=== PATIENT | male | born 1940 | race Caucasian/White ===

== ENCOUNTER 2022-09-05 08:49 | Emergency (ER) | payer OTHER ==
[~2022-09-05] VITALS: Ht 172.7 cm; Wt 81.7 kg
[~2022-09-05 08:49] MED LIST: ALBU90OI; ALPR1; ALPR1 PO; ASPI325 PO; ATOR20 PO; ATOR40TA; ATORVASTATIN CALCIUM; CLOP75 PO; CYCL10 PO; FLOVENT; FLUT44OIA INH; HYDACE5 PO; IRON; L-ARGININE500 MG PO; LEVSOD125 PO; LOSHYD PO; LOVA20 PO; NITR.4SL SL; OMEP20ER PO; OMEP40CA12 PO; POTASSIUM CHLORIDE; SERT100 PO; TELM40 PO; VITAMIN C; Vitamin B Comple1 EA; ZOLP10
[2022-09-05 10:25] LABS: BASOPHILS ABSOLUTE AUTO 0.03 K/mm3 (0.00-0.23); BASOPHILS PERCENT AUTO 0 % (0-2); EOSINOPHILS ABSOLUTE AUTO 0.04 K/mm3 (0.00-0.68); EOSINOPHILS PERCENT AUTO 1 % (0-6); Hematocrit 38.4 % (37.0-53.0); Hemoglobin 12.7 g/dL (13.5-17.5); IMMATURE GRAN ABSOLUTE AUTO 0.09 K/mm3 (0.00-0.10); IMMATURE GRAN PERCENT AUTO 1 % (0-1); LYMPHOCYTES PERCENT AUTO 14 % (21-46); MONOCYTES ABSOLUTE AUTO 0.88 K/mm3 (0.16-1.47); MONOCYTES PERCENT AUTO 13 % (4-13); Mean Corpuscular HGB 31.1 pg (26.0-34.0); Mean Corpuscular HGB Conc 33.1 g/dL (31.5-36.5); Mean Corpuscular Volume 94 fL (80-100); Mean Platelet Volume 10.9 fL (9.1-12.4); NEUTROPHILS ABSOLUTE AUTO 4.99 K/mm3 (1.96-9.15); NEUTROPHILS PERCENT AUTO 71 % (41-73); Platelet Count 216 K/mm3 (150-400); RDW Coefficient Variation 14.5 % (11.7-14.2); RDW Standard Deviation 49.9 fL (35.1-46.3); Red Blood Cell Count 4.08 M/mm3 (4.30-5.90); White Blood Cell Count 7.03 K/mm3 (4.00-11.30)
[2022-09-05] MEDS ORDERED: REMERON1510 PO (10:36)
[2022-09-05] MEDS ORDERED: NEURONTIN300 MG PO (10:36)
[2022-09-05] MEDS ORDERED: ELIQUIS5 M3 PO (10:37)
[2022-09-05] MEDS ORDERED: NEBIVOLOL HCL5 MG PO (10:38)
[2022-09-05 10:49] LABS: Albumin, Blood 4.3 g/dL (3.4-5.0); Albumin/Globulin Ratio 1.4 (0.8-1.8); Bilirubin, Total 0.6 mg/dL (0.1-1.0); Bun/Creatinine Ratio 24.3 (12.0-20.0); Calcium, Blood 8.9 mg/dL (8.5-10.1); Creatinine, Blood 0.82 mg/dL (0.60-1.20); Globulin, Blood 3.1 g/dL (2.2-4.0); Magnesium, Blood 2.2 mg/dL (1.6-2.4); Potassium, Blood 4.2 mmol/L (3.5-5.5); Total Protein, Blood 7.4 g/dL (6.4-8.2)
[2022-09-05 14:30] VITALS: BP 150/100
== END 2022-09-05 14:55 | disposition home or self-care (01) ==
LOC: ER 08:49
PROVIDERS: Student in an Organized Health Care Education/Training Program
DX: R00.2 Palpitations (principal); I10 Essential (primary) hypertension; I48.91 Unspecified atrial fibrillation; E78.5 Hyperlipidemia, unspecified; Z91.048 Other nonmedicinal substance allergy status; Z88.5 Allergy status to narcotic agent; Z79.82 Long term (current) use of aspirin; Z79.02 Long term (current) use of antithrombotics/antiplatelets; Z79.899 Other long term (current) drug therapy
CPT/HCPCS: 71045; 80053; 83735; 84484; 85025; 93005; 93010; J2405

== ENCOUNTER → 2022-11-21 | Outpatient (CLI) | payer OTHER ==
[~2022-11-21] MED LIST changes: +ELIQUIS5 M3 PO; +NEBIVOLOL HCL5 MG PO; +NEURONTIN300 MG PO; +REMERON1510 PO
== END ==
LOC: LAB SHORT 12:00 → LAB 12:00
DX: E03.9 Hypothyroidism, unspecified (principal)
CPT/HCPCS: 84443

== ENCOUNTER 2023-03-21 20:56 | Emergency (ER) | payer OTHER ==
[~2023-03-21] VITALS: Ht 172.7 cm; Wt 82.5 kg
[2023-03-21 21:17] LABS: BASOPHILS ABSOLUTE AUTO 0.03 K/mm3 (0.00-0.23); BASOPHILS PERCENT AUTO 1 % (0-2); EOSINOPHILS ABSOLUTE AUTO 0.04 K/mm3 (0.00-0.68); EOSINOPHILS PERCENT AUTO 1 % (0-6); Hemoglobin 11.8 g/dL (13.5-17.5); IMMATURE GRAN ABSOLUTE AUTO 0.06 K/mm3 (0.00-0.10); IMMATURE GRAN PERCENT AUTO 2 % (0-1); LYMPHOCYTES ABSOLUTE AUTO 1.15 K/mm3 (0.84-5.20); LYMPHOCYTES PERCENT AUTO 30 % (21-46); MONOCYTES ABSOLUTE AUTO 0.88 K/mm3 (0.16-1.47); MONOCYTES PERCENT AUTO 23 % (4-13); Mean Corpuscular HGB 31.1 pg (26.0-34.0); Mean Corpuscular HGB Conc 32.8 g/dL (31.5-36.5); Mean Corpuscular Volume 95 fL (80-100); Mean Platelet Volume 11.1 fL (9.1-12.4); NEUTROPHILS ABSOLUTE AUTO 1.71 K/mm3 (1.96-9.15); NEUTROPHILS PERCENT AUTO 44 % (41-73); Platelet Count 141 K/mm3 (150-400); RDW Coefficient Variation 14.6 % (11.7-14.2); RDW Standard Deviation 50.5 fL (35.1-46.3); Red Blood Cell Count 3.79 M/mm3 (4.30-5.90); White Blood Cell Count 3.87 K/mm3 (4.00-11.30)
[2023-03-21 21:41] LABS: Albumin, Blood 3.7 g/dL (3.4-5.0); Albumin/Globulin Ratio 1.2 (0.8-1.8); Bilirubin, Total 0.4 mg/dL (0.1-1.0); Bun/Creatinine Ratio 20.7 (12.0-20.0); Calcium, Blood 8.4 mg/dL (8.5-10.1); Creatinine, Blood 0.82 mg/dL (0.60-1.20); Globulin, Blood 3.1 g/dL (2.2-4.0); Potassium, Blood 3.7 mmol/L (3.5-5.5); Total Protein, Blood 6.8 g/dL (6.4-8.2)
[2023-03-21 22:15] VITALS: BP 137/84
== END 2023-03-21 22:35 | disposition home or self-care (01) ==
LOC: ER 20:56
PROVIDERS: Emergency Medicine
DX: F41.9 Anxiety disorder, unspecified (principal); I10 Essential (primary) hypertension; E78.5 Hyperlipidemia, unspecified; I48.91 Unspecified atrial fibrillation
CPT/HCPCS: 80053; 84484; 85025; 93005; 93010; 99284-25

== ENCOUNTER 2023-04-22 03:16 | Emergency (ER) | payer OTHER ==
[~2023-04-22] VITALS: Ht 177.8 cm; Wt 83.9 kg
[2023-04-22 03:47] LABS: BASOPHILS ABSOLUTE AUTO 0.03 K/mm3 (0.00-0.23); BASOPHILS PERCENT AUTO 0 % (0-2); EOSINOPHILS ABSOLUTE AUTO 0.18 K/mm3 (0.00-0.68); EOSINOPHILS PERCENT AUTO 3 % (0-6); Hematocrit 27.8 % (37.0-53.0); Hemoglobin 8.9 g/dL (13.5-17.5); IMMATURE GRAN ABSOLUTE AUTO 0.18 K/mm3 (0.00-0.10); IMMATURE GRAN PERCENT AUTO 3 % (0-1); LYMPHOCYTES ABSOLUTE AUTO 1.14 K/mm3 (0.84-5.20); LYMPHOCYTES PERCENT AUTO 17 % (21-46); MONOCYTES ABSOLUTE AUTO 1.23 K/mm3 (0.16-1.47); MONOCYTES PERCENT AUTO 18 % (4-13); Mean Corpuscular HGB 30.8 pg (26.0-34.0); Mean Corpuscular Volume 96 fL (80-100); Mean Platelet Volume 11.2 fL (9.1-12.4); NEUTROPHILS ABSOLUTE AUTO 3.94 K/mm3 (1.96-9.15); NEUTROPHILS PERCENT AUTO 59 % (41-73); Platelet Count 127 K/mm3 (150-400); RDW Coefficient Variation 14.6 % (11.7-14.2); RDW Standard Deviation 50.4 fL (35.1-46.3); Red Blood Cell Count 2.89 M/mm3 (4.30-5.90)
[2023-04-22 04:08] LABS: Albumin, Blood 2.9 g/dL (3.4-5.0); Albumin/Globulin Ratio 1.1 (0.8-1.8); Bilirubin, Total 0.3 mg/dL (0.1-1.0); Bun/Creatinine Ratio 27.3 (12.0-20.0); Calcium, Blood 7.8 mg/dL (8.5-10.1); Creatinine, Blood 0.88 mg/dL (0.60-1.20); Globulin, Blood 2.7 g/dL (2.2-4.0); Potassium, Blood 3.6 mmol/L (3.5-5.5); Total Protein, Blood 5.6 g/dL (6.4-8.2)
[2023-04-22 07:02] LABS: Hemoglobin 9.2 g/dL (13.5-17.5)
[2023-04-22 07:27] VITALS: BP 117/65
== END 2023-04-22 08:14 | disposition home or self-care (01) ==
LOC: ER 03:16
PROVIDERS: Emergency Medicine
DX: R07.9 Chest pain, unspecified (principal); D64.9 Anemia, unspecified; R14.0 Abdominal distension (gaseous); M25.511 Pain in right shoulder; M25.512 Pain in left shoulder; M79.621 Pain in right upper arm; M79.622 Pain in left upper arm; G89.29 Other chronic pain; I10 Essential (primary) hypertension; E78.5 Hyperlipidemia, unspecified; I48.91 Unspecified atrial fibrillation; Z86.73 Personal history of transient ischemic attack (TIA), and cerebral infarction without residual deficits; Z95.9 Presence of cardiac and vascular implant and graft, unspecified; Z79.01 Long term (current) use of anticoagulants; Z79.82 Long term (current) use of aspirin; Z79.51 Long term (current) use of inhaled steroids; Z79.899 Other long term (current) drug therapy; Z88.5 Allergy status to narcotic agent; Z91.048 Other nonmedicinal substance allergy status
CPT/HCPCS: 71046; 74174; 80053; 83880; 84484; 85014; 85018; 85025; 85379; 93005; 93010; 99285-25; A9270; Q9967

== ENCOUNTER 2023-05-05 07:50 | Emergency (ER) | payer OTHER ==
[~2023-05-05] VITALS: Ht 172.7 cm; Wt 83.5 kg
[2023-05-05 07:56] VITALS: BP 130/77
== END 2023-05-05 09:54 | disposition home or self-care (01) ==
LOC: ER 07:50
DX: M54.2 Cervicalgia (principal); G89.29 Other chronic pain; M25.511 Pain in right shoulder; M25.512 Pain in left shoulder; M54.9 Dorsalgia, unspecified; Z98.890 Other specified postprocedural states; I10 Essential (primary) hypertension; E78.5 Hyperlipidemia, unspecified; I48.91 Unspecified atrial fibrillation; Z88.5 Allergy status to narcotic agent; Z91.048 Other nonmedicinal substance allergy status; Z79.899 Other long term (current) drug therapy; Z79.01 Long term (current) use of anticoagulants; Z79.51 Long term (current) use of inhaled steroids; Z79.82 Long term (current) use of aspirin
CPT/HCPCS: 96372; 99283-25; J1885

== ENCOUNTER → 2023-05-11 | Outpatient (CLI) | payer OTHER ==
[2023-05-11 12:27] LABS: BASOPHILS ABSOLUTE AUTO 0.02 K/mm3 (0.00-0.23); BASOPHILS PERCENT AUTO 0 % (0-2); EOSINOPHILS PERCENT AUTO 9 % (0-6); Hematocrit 31.5 % (37.0-53.0); IMMATURE GRAN ABSOLUTE AUTO 0.12 K/mm3 (0.00-0.10); IMMATURE GRAN PERCENT AUTO 2 % (0-1); LYMPHOCYTES ABSOLUTE AUTO 1.09 K/mm3 (0.84-5.20); LYMPHOCYTES PERCENT AUTO 20 % (21-46); MONOCYTES PERCENT AUTO 31 % (4-13); Mean Corpuscular HGB 30.1 pg (26.0-34.0); Mean Corpuscular HGB Conc 31.7 g/dL (31.5-36.5); Mean Corpuscular Volume 95 fL (80-100); Mean Platelet Volume 10.5 fL (9.1-12.4); NEUTROPHILS ABSOLUTE AUTO 2.12 K/mm3 (1.96-9.15); NEUTROPHILS PERCENT AUTO 38 % (41-73); Platelet Count 191 K/mm3 (150-400); RDW Coefficient Variation 15.7 % (11.7-14.2); RDW Standard Deviation 54.1 fL (35.1-46.3); Red Blood Cell Count 3.32 M/mm3 (4.30-5.90); White Blood Cell Count 5.55 K/mm3 (4.00-11.30)
[2023-05-11 13:12] LABS: Albumin, Blood 3.3 g/dL (3.4-5.0); Bilirubin, Direct 0.2 mg/dL (0.0-0.3); Bilirubin, Indirect 0.4 mg/dL (0.1-0.7); Bilirubin, Total 0.6 mg/dL (0.1-1.0); Bun/Creatinine Ratio 19.6 (12.0-20.0); Calcium, Blood 8.7 mg/dL (8.5-10.1); Creatinine, Blood 0.72 mg/dL (0.60-1.20); Globulin, Blood 3.4 g/dL (2.2-4.0); Phosphorus, Blood 2.7 mg/dL (2.5-4.9); Potassium, Blood 3.7 mmol/L (3.5-5.5); Total Protein, Blood 6.7 g/dL (6.4-8.2)
== END | disposition home or self-care (01) ==
LOC: LAB SHORT 10:34 → LAB 10:34
PROVIDERS: Internal Medicine
DX: I10 Essential (primary) hypertension (principal); I48.0 Paroxysmal atrial fibrillation; R29.898 Other symptoms and signs involving the musculoskeletal system; R60.1 Generalized edema
CPT/HCPCS: 80053; 82248; 83880; 84100; 85025; 85651

== ENCOUNTER → 2023-05-19 | Outpatient (CLI) | payer OTHER ==
[2023-05-20 08:10] LABS: ALBUMIN 4.1 g/dL (3.7-4.7); BILIRUBIN, DIRECT 0.17 mg/dL (0.00-0.40); BILIRUBIN, TOTAL 0.6 mg/dL (0.0-1.2); CALCIUM, SERUM 9.2 mg/dL (8.6-10.2); CREATININE, SERUM 0.89 mg/dL (0.76-1.27); POTASSIUM, SERUM 3.7 mmol/L (3.5-5.2)
== END ==
LOC: LAB SHORT 14:07 → LAB 14:07
PROVIDERS: Internal Medicine
DX: I10 Essential (primary) hypertension (principal); R60.1 Generalized edema
CPT/HCPCS: 80048; 80076

== ENCOUNTER → 2023-10-05 | Outpatient (CLI) | payer OTHER | END | disposition home or self-care (01) | LOC: LAB SHORT 18:28 → LAB 18:28 | DX: N39.0 Urinary tract infection, site not specified (principal) | CPT/HCPCS: 87086 ==

== ENCOUNTER → 2023-11-05 | Outpatient (CLI) | payer OTHER ==
[2023-11-05 14:19] LABS: Source, Urine Clean Catch
[2023-11-05 15:30] LABS: Bilirubin, Urine Neg (Neg); Blood, Urine Neg (Neg); Color, Urine Yellow (P-Yellow); Glucose Qualitative, Urine Neg (Neg); Ketones, Urine Neg (Neg); Leukocyte Esterase, Urine Neg (Neg); Nitrite, Urine Neg (Neg); Protein, Urine 1+ (Neg); Urobilinogen, Urine NORM (Normal)
[2023-11-05 15:44] LABS: Amorphous Light (0-Heavy); Appearance, Urine Hazy (Clear); Bacteria Rare /hpf; Red Blood Cells, Urine 0-2 /hpf (0-2); Squamous Epithelial Cells Rare /hpf (Few); White Blood Cells, Urine 0-2 /hpf (0-5)
== END ==
LOC: LAB SHORT 14:02 → LAB 14:02
PROVIDERS: Internal Medicine
DX: R30.0 Dysuria (principal)
CPT/HCPCS: 81001

== ENCOUNTER 2024-01-02 18:58 | Emergency (ER) | payer OTHER ==
[~2024-01-02] VITALS: Ht 172.7 cm; Wt 88.0 kg
[2024-01-02 19:27] LABS: BASOPHILS ABSOLUTE AUTO 0.02 K/mm3 (0.00-0.23); BASOPHILS PERCENT AUTO 0 % (0-2); EOSINOPHILS ABSOLUTE AUTO 0.09 K/mm3 (0.00-0.68); EOSINOPHILS PERCENT AUTO 1 % (0-6); Hematocrit 28.5 % (37.0-53.0); Hemoglobin 8.7 g/dL (13.5-17.5); IMMATURE GRAN ABSOLUTE AUTO 0.07 K/mm3 (0.00-0.10); IMMATURE GRAN PERCENT AUTO 1 % (0-1); LYMPHOCYTES PERCENT AUTO 23 % (21-46); MONOCYTES ABSOLUTE AUTO 1.61 K/mm3 (0.16-1.47); MONOCYTES PERCENT AUTO 25 % (4-13); Mean Corpuscular HGB 27.2 pg (26.0-34.0); Mean Corpuscular HGB Conc 30.5 g/dL (31.5-36.5); Mean Corpuscular Volume 89 fL (80-100); Mean Platelet Volume 10.6 fL (9.1-12.4); NEUTROPHILS ABSOLUTE AUTO 3.27 K/mm3 (1.96-9.15); NEUTROPHILS PERCENT AUTO 50 % (41-73); Platelet Count 171 K/mm3 (150-400); RDW Coefficient Variation 16.6 % (11.7-14.2); White Blood Cell Count 6.56 K/mm3 (4.00-11.30)
[2024-01-02 19:42] LABS: Albumin, Blood 3.5 g/dL (3.4-5.0); Albumin/Globulin Ratio 1.1 (0.8-1.8); Bilirubin, Total 0.3 mg/dL (0.1-1.0); Bun/Creatinine Ratio 19.5 (12.0-20.0); Calcium, Blood 8.3 mg/dL (8.5-10.1); Creatinine, Blood 0.92 mg/dL (0.60-1.20); Globulin, Blood 3.2 g/dL (2.2-4.0); Potassium, Blood 2.9 mmol/L (3.5-5.5); Total Protein, Blood 6.7 g/dL (6.4-8.2)
[2024-01-02] MEDS ORDERED: Potassium Chloride 20 MEQ/15 ML UDC PO ONE (19:50)
[2024-01-02] MEDS ORDERED: Potassium Chl 20MEQ/Water100ML 100 ML IV ONE (19:50)
[2024-01-02] MEDS ORDERED: NS 1,000 ML IV SCH (20:15)
[2024-01-02 21:00] VITALS: BP 163/97
[2024-01-02] MEDS ORDERED: K-Dur20 MEQ PO (21:49)
== END 2024-01-02 22:02 | disposition home or self-care (01) ==
LOC: ER 18:58
PROVIDERS: Pediatrics
DX: R07.89 Other chest pain (principal); I10 Essential (primary) hypertension; I48.91 Unspecified atrial fibrillation; I25.2 Old myocardial infarction; E78.5 Hyperlipidemia, unspecified; Z86.73 Personal history of transient ischemic attack (TIA), and cerebral infarction without residual deficits; Z79.82 Long term (current) use of aspirin; Z79.51 Long term (current) use of inhaled steroids; Z79.899 Other long term (current) drug therapy; Z88.5 Allergy status to narcotic agent; Z91.048 Other nonmedicinal substance allergy status
CPT/HCPCS: 71045; 80053; 84484; 85025; 93005; 93010; 96365; 96366; 99285-25; A9270; J3480; J7030

== ENCOUNTER 2024-01-08 11:39 | Inpatient (IN) | payer OTHER ==
[~2024-01-08] VITALS: Ht 172.7 cm; Wt 88.6 kg
[~2024-01-08 11:39] MED LIST changes: -ATOR40TA; +ATOR80 PO; +K-Dur20 MEQ PO
[2024-01-08 12:18] LABS: BASOPHILS ABSOLUTE AUTO 0.03 K/mm3 (0.00-0.23); BASOPHILS PERCENT AUTO 0 % (0-2); EOSINOPHILS ABSOLUTE AUTO 0.06 K/mm3 (0.00-0.68); EOSINOPHILS PERCENT AUTO 1 % (0-6); Hematocrit 31.8 % (37.0-53.0); Hemoglobin 9.5 g/dL (13.5-17.5); IMMATURE GRAN ABSOLUTE AUTO 0.18 K/mm3 (0.00-0.10); IMMATURE GRAN PERCENT AUTO 2 % (0-1); LYMPHOCYTES ABSOLUTE AUTO 1.72 K/mm3 (0.84-5.20); LYMPHOCYTES PERCENT AUTO 19 % (21-46); MONOCYTES ABSOLUTE AUTO 2.29 K/mm3 (0.16-1.47); MONOCYTES PERCENT AUTO 26 % (4-13); Mean Corpuscular HGB 27.3 pg (26.0-34.0); Mean Corpuscular HGB Conc 29.9 g/dL (31.5-36.5); Mean Corpuscular Volume 91 fL (80-100); Mean Platelet Volume 11.4 fL (9.1-12.4); NEUTROPHILS ABSOLUTE AUTO 4.59 K/mm3 (1.96-9.15); NEUTROPHILS PERCENT AUTO 52 % (41-73); Platelet Count 172 K/mm3 (150-400); RDW Coefficient Variation 17.2 % (11.7-14.2); Red Blood Cell Count 3.48 M/mm3 (4.30-5.90); White Blood Cell Count 8.87 K/mm3 (4.00-11.30)
[2024-01-08 12:38] LABS: Albumin, Blood 3.9 g/dL (3.4-5.0); Albumin/Globulin Ratio 1.1 (0.8-1.8); Bilirubin, Total 0.4 mg/dL (0.1-1.0); Calcium, Blood 9.1 mg/dL (8.5-10.1); Creatinine, Blood 0.96 mg/dL (0.60-1.20); Globulin, Blood 3.4 g/dL (2.2-4.0); Potassium, Blood 3.3 mmol/L (3.5-5.5); Total Protein, Blood 7.3 g/dL (6.4-8.2)
[2024-01-08] MEDS ORDERED: FLU VACC TS2024-25(6MOS UP)/PF 45 MCG/0.5 ML SYRINGE IM SCH (16:50)
[2024-01-08] MEDS ORDERED: Acetaminophen 325 MG TABLET PO PRN (16:50)
[2024-01-08] MEDS ORDERED: Pantoprazole Sodium 40 MG in NS 50 ML IV SCH (16:55)
[2024-01-08] MEDS ORDERED: Ondansetron 4 MG TAB PO PRN (16:55)
[2024-01-08] MEDS ORDERED: Pantoprazole Sodium 40 MG Injection IV ONE (17:00)
[2024-01-08] MEDS ORDERED: ALPRAZolam 1 MG Tab PO SCH (17:00)
[2024-01-08] MEDS ORDERED: Potassium Chl 20MEQ/Water100ML 100 ML IV SCH (17:05)
[2024-01-08] MEDS ORDERED: Albuterol HFA200 ACT/6.7 GM INH INH PRN (17:10)
[2024-01-08] MEDS ORDERED: CefTRIAXone Sodium 1,000 MG in NS 50 ML IV ONE (17:35)
[2024-01-08] MEDS ORDERED: NS 1,000 ML IV ONE (18:36)
[2024-01-08] MEDS ORDERED: NS 1,000 ML BAG IR SCH (18:40)
[2024-01-08] MEDS ORDERED: NS 1,000 ML IV SCH (19:20)
[2024-01-08 19:55] LABS: Hematocrit 27.9 % (37.0-53.0); Hemoglobin 8.3 g/dL (13.5-17.5)
--- NOTE | 2024-01-08 20:37 | NUR ---
NEW ADMIT. PATIENT ADMITTED TO ROOM 331 FROM THE ER. PATIENT ARRIVED TO ROOM VIA GURNEY AND 1 PERSON TRANSPORT. PATIENT ABLE TO SELF TRANSFER FROM GURNEY TO BED. PATIENT ARRIVED TO ROOM WITH 1 PERSONAL BELONGINGS BAG. PATIENT ARRIVED WITH FLUIDS AND POTASSIUM-2ND BAG OF POTASSIUM STARTED AT THIS TIME. THIS RN TO ASSUME CARE.
[2024-01-08] MEDS ORDERED: Zolpidem Tartrate 10 MG Tab PO SCH (21:00)
[2024-01-08] MEDS ORDERED: Sertraline HCl 100 MG Tab PO SCH (21:00)
[2024-01-08] MEDS ORDERED: Phenylephrine HCl 100 MCG/ML-NS 10MLSYR (1MG/10ML) IV ONE (21:04)
[2024-01-08] MEDS ORDERED: IRON FOLATE-F1 EACH PO (21:14)
[2024-01-08] MEDS ORDERED: MULTI-VITAMIN1 EAC2 PO (21:15)
[2024-01-09 02:57] VITALS: BP 157/98
--- NOTE | 2024-01-09 05:03 | NUR ---
SHIFT SUMMARY. PATIENT IS A&OX4. INDEPENDENT TO THE BATHROOM WITH CANE. PATIENT IS PLEASANT ABND COOPERATIVE WITH CARE. PATIENT HAS TELE ON-TELE HAS CALLED FREQUENTLY D/T PATIENT READING ASYSTOLE-PATIENT AWAKE WATCHING TV WITH NO COMPLAINTS OF CHEST PAIN/PRESSURE/TIGHTNESS OR HEART ISSUES. PATIENT HAS A PACEMAKER AND HE WENT TO [place] LAST MONTH TO HAVE HIS PACEMAKER INTERIGATED-DURING THIS VISIT PATIENT SAID REPORTS "THEY TOOK ME BACK TO THE ROOM AND THE PA WENT TO DISCUSS MY RESULTS WITH DOCTOR AND WOULD RETURN TO TALK TO ME. THE PA DID NOT COME BACK INTO MY ROOM AND IT HAD BEEN AN HOUR SO I LEFT MY APPOINTMENT AND THE DOCTOR NEVER CALLED ME". THIS RN CHANGED OUT PATIENTS LEADS, PADS, AND CONNECTOR FOR TELE WITH NO IMPROVEMENT IN READINGS. PATIENT ADMITTED WITH GI BLEED. HEMAGLOBIN WAS 8.3 AT ADMITTANCE TO MEDICAL FLOOR-PATIENT ASYMPTOMATIC. BED IS LOCKED IN THE LOWEST POSITION WITH CALL LIGHT IN REACH. CARE IS ONGOING.
[2024-01-09 05:27] LABS: BASOPHILS ABSOLUTE AUTO 0.03 K/mm3 (0.00-0.23); BASOPHILS PERCENT AUTO 1 % (0-2); EOSINOPHILS ABSOLUTE AUTO 0.07 K/mm3 (0.00-0.68); EOSINOPHILS PERCENT AUTO 1 % (0-6); Hematocrit 27.4 % (37.0-53.0); Hemoglobin 8.3 g/dL (13.5-17.5); IMMATURE GRAN ABSOLUTE AUTO 0.13 K/mm3 (0.00-0.10); IMMATURE GRAN PERCENT AUTO 2 % (0-1); LYMPHOCYTES ABSOLUTE AUTO 0.87 K/mm3 (0.84-5.20); LYMPHOCYTES PERCENT AUTO 15 % (21-46); MONOCYTES ABSOLUTE AUTO 1.75 K/mm3 (0.16-1.47); MONOCYTES PERCENT AUTO 29 % (4-13); Mean Corpuscular HGB 27.5 pg (26.0-34.0); Mean Corpuscular HGB Conc 30.3 g/dL (31.5-36.5); Mean Corpuscular Volume 91 fL (80-100); NEUTROPHILS ABSOLUTE AUTO 3.14 K/mm3 (1.96-9.15); NEUTROPHILS PERCENT AUTO 52 % (41-73); Platelet Count 134 K/mm3 (150-400); RDW Coefficient Variation 17.1 % (11.7-14.2); Red Blood Cell Count 3.02 M/mm3 (4.30-5.90); White Blood Cell Count 5.99 K/mm3 (4.00-11.30)
[2024-01-09 05:46] LABS: Bun/Creatinine Ratio 21.2 (12.0-20.0); Calcium, Blood 8.3 mg/dL (8.5-10.1); Creatinine, Blood 0.8 mg/dL (0.60-1.20); Potassium, Blood 3.5 mmol/L (3.5-5.5)
[2024-01-09 07:19] VITALS: BP 175/93
[2024-01-09] MEDS ORDERED: Carvedilol 3.125 MG Tab PO SCH (08:00)
[2024-01-09] MEDS ORDERED: Vitamin B Complex 1 EA Softgel PO SCH (09:00)
[2024-01-09] MEDS ORDERED: Atorvastatin 40 MG Tab PO SCH (09:00)
[2024-01-09] MEDS ORDERED: Mirtazapine 15 MG Tab PO SCH (09:00)
[2024-01-09] MEDS ORDERED: Gabapentin 300 MG Cap PO SCH (09:00)
[2024-01-09] MEDS ORDERED: Potassium Chloride 20 MEQ TabCR PO SCH (09:00)
[2024-01-09 10:19] VITALS: BP 154/106
[2024-01-09] MEDS ORDERED: HydrALAZINE HCl 10 MG Tab PO PRN (10:35)
[2024-01-09 11:03] VITALS: BP 161/93
[2024-01-09] MEDS ORDERED: Peg/Electrolytes 4,000 ML BTL PO ONE (11:25)
[2024-01-09 12:19] LABS: Hematocrit 27.7 % (37.0-53.0); Hemoglobin 8.4 g/dL (13.5-17.5)
[2024-01-09 15:49] VITALS: BP 157/106
--- NOTE | 2024-01-09 18:47 | NUR ---
SHIFT SUMMARY PATIENT STARTED GOLYTLY ABOUT NOON THIS SHIFT, ABOUT HALF COMPLETE END OF SHIFT. PRODUCING LIQUID BLACK STOOLS, MIXED CONTINENCE. CHAIR ALARM PLACED, PATIENT REPORITNG FEELING LIKE HE IS DRUNK AND POSSIBLY EXPERIENCING HALLUCINATIONS. DR BRIONES MADE AWARE, SUGGESTED TO CONTINUE TO MONITOR. VSS, MINUS HTN. PRN ADDED BUT NOT GIVEN PER PARAMTERS. RELEASE OF INFO FAXED TO [employer] FOR [employer] INFORATION. ON TELE, NO CONCERNING CALLS THIS SHIFT. ABLE TO MAKE NEEDS KNOWN. CALL LIGHT IN REACH, ENCOURAGED TO USE BSC FOR SAFETY.
[2024-01-09 19:18] VITALS: BP 123/81
[2024-01-10] VITALS (15 sets, daily range): BP systolic 83–157; BP diastolic 62–103
[2024-01-10] MEDS ORDERED: Levothyroxine Sodium 0.075 MG Tab PO SCH (06:00)
[2024-01-10 06:11] LABS: BASOPHILS ABSOLUTE AUTO 0.02 K/mm3 (0.00-0.23); BASOPHILS PERCENT AUTO 0 % (0-2); EOSINOPHILS ABSOLUTE AUTO 0.07 K/mm3 (0.00-0.68); EOSINOPHILS PERCENT AUTO 1 % (0-6); Hematocrit 24.1 % (37.0-53.0); Hemoglobin 7.5 g/dL (13.5-17.5); IMMATURE GRAN ABSOLUTE AUTO 0.15 K/mm3 (0.00-0.10); IMMATURE GRAN PERCENT AUTO 3 % (0-1); LYMPHOCYTES ABSOLUTE AUTO 0.87 K/mm3 (0.84-5.20); LYMPHOCYTES PERCENT AUTO 16 % (21-46); MONOCYTES ABSOLUTE AUTO 1.23 K/mm3 (0.16-1.47); MONOCYTES PERCENT AUTO 23 % (4-13); Mean Corpuscular HGB 27.8 pg (26.0-34.0); Mean Corpuscular HGB Conc 31.1 g/dL (31.5-36.5); Mean Corpuscular Volume 89 fL (80-100); Mean Platelet Volume 10.7 fL (9.1-12.4); NEUTROPHILS ABSOLUTE AUTO 3.05 K/mm3 (1.96-9.15); NEUTROPHILS PERCENT AUTO 57 % (41-73); Platelet Count 118 K/mm3 (150-400); RDW Coefficient Variation 17.1 % (11.7-14.2); White Blood Cell Count 5.39 K/mm3 (4.00-11.30)
--- NOTE | 2024-01-10 06:29 | NUR ---
night hift PATIENT IS A&OX3 FORGETFUL AT TIMES, BP SLIGHTLY ELEVATED, ON TELE RUNNIGN A PACED AT 70, ON ROOM AIR PATIENT DENIED ANY PIN BUT COMPLAINED OF FEELING NAUSA. PATIENT DRINK ALL OF BOWEL PREP LASTNIGHT, BOWEL MOVEMENT IS LIQUIT BUT BLACK IN APPERANCE FROM GI BLEED PATIENT HAS A COLONOSCOPY PLAN TODAY. PATIENT HAD AN UNWAITNESS FALL DURING SHIFT WHEN HE TRIED GETTING OUT OF BED TO USE THE BATHROOM. PATIENT SAID HE CALLED BUT THE ALL LIGHTS WERE NOT WORKING AT THAT TIME SO STAFF DIDN'T KNOW TO COME IN TO HELP HIM. PATIENT HAD TWO BRUISES TO UPPER BACK AND A SMALL SKIN TEAR TO RIGHT ELBOW. VITALS WERE TAKEN AND APPEARD NORMAL. MD WAS NOTIFIED AND INSTRUCTED STAFF TO MONITOR PATIENT FOR NAY STATUS CHANGES.
[2024-01-10 06:36] LABS: Albumin, Blood 3.2 g/dL (3.4-5.0); Albumin/Globulin Ratio 1.2 (0.8-1.8); Bilirubin, Total 0.7 mg/dL (0.1-1.0); Bun/Creatinine Ratio 16.7 (12.0-20.0); Calcium, Blood 7.4 mg/dL (8.5-10.1); Creatinine, Blood 0.96 mg/dL (0.60-1.20); Globulin, Blood 2.6 g/dL (2.2-4.0); Potassium, Blood 3.4 mmol/L (3.5-5.5); Total Protein, Blood 5.8 g/dL (6.4-8.2)
[2024-01-10] MEDS ORDERED: Lactated Ringer's 1,000 ML IV SCH (11:35)
[2024-01-10] MEDS ORDERED: propofoL 60 ML IV ONE (11:37)
[2024-01-10] MEDS ORDERED: Lidocaine HCl 4% 5 ML SDA ONE (11:37)
[2024-01-10] MEDS ORDERED: Ondansetron HCl 2 MG / ML 2ML Vial ONE (11:59)
[2024-01-10] MEDS ORDERED: propofoL 20 ML IV ONE (11:59)
[2024-01-10] MEDS ORDERED: Glycopyrrolate 0.2 MG/ML 5ML VIAL ONE (12:00)
--- NOTE | 2024-01-10 12:10 | NUR ---
History, Chart, Medications and Allergies reviewed before start of procedure.Lungs DIMINISHED TO RIGTH BASE. NO NOTED SOB. SATS>90% ON RA. NPO STATUS CONFIRMED. BOWEL PREP CONFIRMED.
--- NOTE | 2024-01-10 12:35 | NUR ---
01/10/24 1235 Grazyna Barragan 1218 History, Chart, Medications and Allergies reviewed before start of procedure.MONITOR INTACT WITH CONTINUOUS PULSE OXIMETRY, CONTINUOUS END TITAL CO2, AND INTERMITTENT BLOOD PRESSURE.3-LEAD EKG REVIEWED WITH PHYSICIAN PRIOR TO START OF PROCEDURE.O2 VIA POM INTACT THROUGHOUT SEDATION/PROCEDURE.LIDO 4% FOR NUMBING.Bite Block Placed.DR. MCNAIR PROVIDING ANESTHESIA-SEE ANESTHESIA RECORD.NEW IV STARTED SHORTLY AFTER IN ROOM TIME PREVIOUS IV INFILTRATED.
[2024-01-10] MEDS ORDERED: Sod Ferric Gluc Complx/Sucrose 125 MG in NS 100 ML IV SCH (15:30)
[2024-01-10] MEDS ORDERED: Potassium Chloride 20 MEQ TabCR PO ONE (16:00)
[2024-01-10] MEDS ORDERED: NS 500 ML IV SCH (16:30)
--- NOTE | 2024-01-10 19:12 | NUR ---
SHIFT SUMMARY PATIENT ABLE TO AMBULATE TO BATHROOM WITH 1 ASSIST AND WALKER. EGD AND COLONSCOPY PERFORMED THIS SHIFT. 1 UNIT PRBC INFUSING AT END OF SHIFT, IRON INFUSION GIVEN. A/OX4, NO HALLUCINATIONS OR C/O FEELING DRUNK THIS SHIFT. TOLERATING REGULAR DIET POSTOP. NO BM AFTER PROCEDURE. NO C/O PAIN, VSS. ABLE TO MAKE NEED KNOWN. CALL LIGHT IN REACH, BED ALARM ON. CARES ONGOING.
[2024-01-11 02:43] VITALS: BP 145/84
--- NOTE | 2024-01-11 04:04 | NUR ---
SHIFT SUMMARY NO ACUTE EVENTS/DISTRESS DURING THIS SHIFT. BLOOD TRANSFUSION FINISHED AT THE BEGINNING OF THIS SHIFT W/O ANY COMPLICATIONS. PRN TYLENOL EFFECTIVE FOR ELEVATED TEMPERATURE AT HS. PT HAS A GOOD APPETITE AND PO INTAKE. PT STATED "I FEEL GREAT" TO THIS CUSTOMER ACCOUNT TECHNICIAN. PT AMBULATING AT 0400 AROUND THE HALLWAY WITH 1-PERSON ASSIST AND FWW. TELE: PACED@69. PT DENIES PAIN AND DISCOMFORT DURING THIS SHIFT. BED AT THE LOWEST POSITION, CALL LIGHT WITHIN REACH. BED ALARM FOR SAFETY. PT IS ABLE TO MAKE HIS NEEDS KNOWN, A&O X4.
[2024-01-11 05:50] LABS: BASOPHILS ABSOLUTE AUTO 0.03 K/mm3 (0.00-0.23); BASOPHILS PERCENT AUTO 0 % (0-2); EOSINOPHILS ABSOLUTE AUTO 0.06 K/mm3 (0.00-0.68); EOSINOPHILS PERCENT AUTO 1 % (0-6); Hemoglobin 8.7 g/dL (13.5-17.5); IMMATURE GRAN ABSOLUTE AUTO 0.11 K/mm3 (0.00-0.10); IMMATURE GRAN PERCENT AUTO 2 % (0-1); LYMPHOCYTES ABSOLUTE AUTO 0.84 K/mm3 (0.84-5.20); LYMPHOCYTES PERCENT AUTO 11 % (21-46); MONOCYTES ABSOLUTE AUTO 1.79 K/mm3 (0.16-1.47); MONOCYTES PERCENT AUTO 24 % (4-13); Mean Corpuscular HGB Conc 31.1 g/dL (31.5-36.5); Mean Corpuscular Volume 90 fL (80-100); Mean Platelet Volume 11.2 fL (9.1-12.4); NEUTROPHILS ABSOLUTE AUTO 4.55 K/mm3 (1.96-9.15); NEUTROPHILS PERCENT AUTO 62 % (41-73); NRBC ABSOLUTE 0.02 K/mm3 (0.00-0.02); NRBC Auto 0.3 /100 WBC (0.0-0.2); Platelet Count 107 K/mm3 (150-400); RDW Coefficient Variation 17.7 % (11.7-14.2); RDW Standard Deviation 54.8 fL (35.1-46.3); Red Blood Cell Count 3.11 M/mm3 (4.30-5.90); White Blood Cell Count 7.38 K/mm3 (4.00-11.30)
[2024-01-11 06:12] LABS: Bun/Creatinine Ratio 16.9 (12.0-20.0); Creatinine, Blood 0.95 mg/dL (0.60-1.20); Potassium, Blood 3.6 mmol/L (3.5-5.5)
[2024-01-11 07:31] VITALS: BP 146/82
[2024-01-11 11:09] VITALS: BP 156/81
--- NOTE | 2024-01-11 11:12 | NUR ---
PER DR BRIONES, PROTONIX GTTs NOT NECESSARY. REMOVING FROM ERM.
[2024-01-11] MEDS ORDERED: Potassium Chlo20 ME1 PO (12:05)
[2024-01-11] MEDS ORDERED: EUTHYROX125 MCG PO (12:07)
--- NOTE | 2024-01-11 12:19 | NUR ---
PATIENT MED REC NOT DONE UPON ADMIT. THE FOLLOWING MEDICATIONS ARE ON PATIENT'S CURRENT MAR AT [facility] AND WILL NEED CLARIFIED WITH PROVIDER BEFORE DISCHARGE: AMLODIPINE 5MG PO QD LEVOTHYROXINE 125MCG QD POLYETHYLENE GLYCOLAX - 1 PACKET PO QD SENNA 8.6MG 2 TABS PO QD SERTRALINE 50MG 3 TABS PO QD FUROSEMIDE 20MG BID THURSDAY, THURSDAY - ADMIN 6 HOURS APART. OMEPRAZOLE 20MG PO BID. HYDROCODONE- APAP 5/325MG - 1 PO BID PRN PAIN LOPERAMIDE HCL SUSPENSION 1MG/7.5MG - 15mL PO PRN LOOSE STOOL. MILK OF MAGNESIA [id number]/15mL - 30mL PO PRN CONSTIPATION. CALL TO DR WHITE WHO WILL SUBMIT MED REC EDIT.
[2024-01-11] MEDS ORDERED: AMLO5 PO (12:32)
[2024-01-11] MEDS ORDERED: FURO20 PO (12:32)
[2024-01-11] MEDS ORDERED: MIRALAX17 GM PO (12:32)
[2024-01-11] MEDS ORDERED: OMEP20ER PO (12:33)
[2024-01-11] MEDS ORDERED: HYDROCODONE-AC1 EA15 PO (12:33)
[2024-01-11] MEDS ORDERED: DULCOLAX400 MG/5 M PO (12:34)
[2024-01-11] MEDS ORDERED: LOPERAMIDE1 MG/7.10 PO (12:34)
--- NOTE | 2024-01-11 20:07 | NUR ---
DISCHARGE/SHIFT SUMMARY: A&Ox4. PLEASANT AND COOPERATIVE WITH CARE. CALLS APPROPRIATELY AND IS ABLE TO ADVOCATE NEEDS EFFECTIVELY. CONTINUENT. SBA c FWW TO BATHROOM. MEDS WHOLE WITH FLUIDS, GXW-MG-B-TIME. TELE PACED IN 60s. NO C/O PAIN OR DISCOMFORT TODAY. DISCHARGED BACK TO [facility]. IV REMOVED BY THIS RN AND STUDENT NURSE, THALIA. INSTRUCTED TO FOLLOW-UP WITH PCP. PATIENT ESCORTED FROM FLOOR BY SON WITH ALL BELONGINGS AND DISCHARGE PACKET.
== END 2024-01-11 13:40 | DRG 378 ==
LOC: ER 11:39 → ERHOLD 11:40 → MEDS 11:40
PROVIDERS: Family Medicine Adult Medicine; Physician Assistant; Student in an Organized Health Care Education/Training Program; Surgery; ADMIT Internal Medicine
PROC: 30233N1 Transfusion of Nonautologous Red Blood Cells into Peripheral Vein, Percutaneous Approach (ICD-10-PCS; 2024-01-08)
PROC: 0DJ08ZZ Inspection of Upper Intestinal Tract, Via Natural or Artificial Opening Endoscopic (ICD-10-PCS; principal; 2024-01-10 12:30)
PROC: 0DJD8ZZ Inspection of Lower Intestinal Tract, Via Natural or Artificial Opening Endoscopic (ICD-10-PCS; 2024-01-10 12:30)
DX: K57.31 Diverticulosis of large intestine without perforation or abscess with bleeding (principal); D62 Acute posthemorrhagic anemia; F41.9 Anxiety disorder, unspecified; F32.A Depression, unspecified; Z66 Do not resuscitate; E03.9 Hypothyroidism, unspecified; E78.5 Hyperlipidemia, unspecified; I10 Essential (primary) hypertension; E87.6 Hypokalemia; G47.00 Insomnia, unspecified; G62.9 Polyneuropathy, unspecified; I48.0 Paroxysmal atrial fibrillation; N40.0 Benign prostatic hyperplasia without lower urinary tract symptoms; Z79.01 Long term (current) use of anticoagulants; I25.2 Old myocardial infarction; Z86.73 Personal history of transient ischemic attack (TIA), and cerebral infarction without residual deficits; Z88.5 Allergy status to narcotic agent; Z79.899 Other long term (current) drug therapy; Z79.82 Long term (current) use of aspirin; Z90.49 Acquired absence of other specified parts of digestive tract; Z98.890 Other specified postprocedural states; Z95.5 Presence of coronary angioplasty implant and graft; Z95.0 Presence of cardiac pacemaker; Z96.612 Presence of left artificial shoulder joint; Z96.611 Presence of right artificial shoulder joint
CPT/HCPCS: 36415; 36430; 74019; 74177; 80048; 80053; 82272; 83690; 84439; 84481; 85014; 85018; 85025; 86850; 86900; 86901; 86923; 94760; 96365; 96366; 96375; 96376; 99285-25; A9270; G0378; J2001; J2371; J2405; J2470; J2704; J2916; J3480; J7030; J7120; P9016; Q9967

== ENCOUNTER → 2024-03-31 | Outpatient (CLI) | payer OTHER ==
[~2024-03-31] MED LIST changes: +AMLO5 PO; +DULCOLAX400 MG/5 M PO; +EUTHYROX125 MCG PO; +FURO20 PO; +HYDROCODONE-AC1 EA15 PO; +IRON FOLATE-F1 EACH PO; +LOPERAMIDE1 MG/7.10 PO; +MIRALAX17 GM PO; +MULTI-VITAMIN1 EAC2 PO; +Potassium Chlo20 ME1 PO
[2024-03-31 18:46] LABS: BASOPHILS ABSOLUTE AUTO 0.03 K/mm3 (0.00-0.23); BASOPHILS PERCENT AUTO 0 % (0-2); EOSINOPHILS ABSOLUTE AUTO 0.07 K/mm3 (0.00-0.68); EOSINOPHILS PERCENT AUTO 1 % (0-6); Hematocrit 34.7 % (37.0-53.0); Hemoglobin 11.3 g/dL (13.5-17.5); IMMATURE GRAN ABSOLUTE AUTO 0.18 K/mm3 (0.00-0.10); IMMATURE GRAN PERCENT AUTO 2 % (0-1); LYMPHOCYTES ABSOLUTE AUTO 1.12 K/mm3 (0.84-5.20); LYMPHOCYTES PERCENT AUTO 12 % (21-46); MONOCYTES ABSOLUTE AUTO 1.18 K/mm3 (0.16-1.47); MONOCYTES PERCENT AUTO 13 % (4-13); Mean Corpuscular HGB 30.5 pg (26.0-34.0); Mean Corpuscular HGB Conc 32.6 g/dL (31.5-36.5); Mean Corpuscular Volume 94 fL (80-100); NEUTROPHILS PERCENT AUTO 72 % (41-73); Platelet Count 147 K/mm3 (150-400); RDW Coefficient Variation 17.7 % (11.7-14.2); RDW Standard Deviation 61.3 fL (35.1-46.3); Red Blood Cell Count 3.71 M/mm3 (4.30-5.90); White Blood Cell Count 9.18 K/mm3 (4.00-11.30)
[2024-03-31 19:30] LABS: Albumin, Blood 3.6 g/dL (3.4-5.0); Albumin/Globulin Ratio 1.1 (0.8-1.8); Bilirubin, Total 0.4 mg/dL (0.1-1.0); Bun/Creatinine Ratio 24.8 (12.0-20.0); Calcium, Blood 9.1 mg/dL (8.5-10.1); Creatinine, Blood 0.85 mg/dL (0.60-1.20); Globulin, Blood 3.3 g/dL (2.2-4.0); Percent Saturation 13.2 % (20.0-50.0); Total Protein, Blood 6.9 g/dL (6.4-8.2)
== END ==
LOC: LAB 16:58 → LAB SHORT 16:58
PROVIDERS: Internal Medicine
DX: E03.9 Hypothyroidism, unspecified (principal); E61.1 Iron deficiency; I10 Essential (primary) hypertension
CPT/HCPCS: 80053; 82728; 83540; 83550; 85025

== ENCOUNTER → 2024-04-23 | Outpatient (CLI) | payer OTHER | END | disposition home or self-care (01) | LOC: LAB 15:05 → LAB SHORT 15:05 | DX: R11.10 Vomiting, unspecified (principal); R35.0 Frequency of micturition | CPT/HCPCS: 87086 ==

== ENCOUNTER 2024-06-04 10:36 | Emergency (ER) | payer OTHER ==
[~2024-06-04] VITALS: Ht 170.2 cm; Wt 81.7 kg
[2024-06-04 11:32] LABS: BASOPHILS ABSOLUTE AUTO 0.05 K/mm3 (0.00-0.23); BASOPHILS PERCENT AUTO 1 % (0-2); EOSINOPHILS ABSOLUTE AUTO 0.09 K/mm3 (0.00-0.68); EOSINOPHILS PERCENT AUTO 1 % (0-6); Hematocrit 33.8 % (37.0-53.0); Hemoglobin 10.8 g/dL (13.5-17.5); IMMATURE GRAN ABSOLUTE AUTO 0.52 K/mm3 (0.00-0.10); IMMATURE GRAN PERCENT AUTO 5 % (0-1); LYMPHOCYTES ABSOLUTE AUTO 1.83 K/mm3 (0.84-5.20); LYMPHOCYTES PERCENT AUTO 18 % (21-46); MONOCYTES ABSOLUTE AUTO 2.15 K/mm3 (0.16-1.47); MONOCYTES PERCENT AUTO 21 % (4-13); Mean Corpuscular HGB 31.1 pg (26.0-34.0); Mean Corpuscular Volume 97 fL (80-100); Mean Platelet Volume 11.2 fL (9.1-12.4); NEUTROPHILS ABSOLUTE AUTO 5.71 K/mm3 (1.96-9.15); NEUTROPHILS PERCENT AUTO 55 % (41-73); Platelet Count 164 K/mm3 (150-400); RDW Coefficient Variation 16.2 % (11.7-14.2); RDW Standard Deviation 57.9 fL (35.1-46.3); Red Blood Cell Count 3.47 M/mm3 (4.30-5.90); White Blood Cell Count 10.35 K/mm3 (4.00-11.30)
[2024-06-04] MEDS ORDERED: Albuterol 2.5 MG/3 ML VIAL INH SCH (11:35)
[2024-06-04] MEDS ORDERED: MethylPREDNISolone Sod Succ 125 MG Vial IV ONE (11:35)
[2024-06-04] MEDS ORDERED: Ipratropium Bromide INH 0.02% 0.5 mg/2.5ML Vial INH SCH (11:35)
[2024-06-04 11:48] LABS: Albumin, Blood 3.7 g/dL (3.4-5.0); Albumin/Globulin Ratio 1.1 (0.8-1.8); Bilirubin, Total 0.6 mg/dL (0.1-1.0); Bun/Creatinine Ratio 19.3 (12.0-20.0); Calcium, Blood 9.1 mg/dL (8.5-10.1); Creatinine, Blood 0.73 mg/dL (0.60-1.20); Globulin, Blood 3.4 g/dL (2.2-4.0); Potassium, Blood 3.6 mmol/L (3.5-5.5); Total Protein, Blood 7.1 g/dL (6.4-8.2)
[2024-06-04 12:15] LABS: Influenza A, PCR NEGATIVE (NEGATIVE); Influenza B, PCR NEGATIVE (NEGATIVE); Resp Syncytial Virus, PCR NEGATIVE (NEGATIVE); SARS-Cov-2 (COVID-19) PCR, MMC NEGATIVE (NEGATIVE)
[2024-06-04] MEDS ORDERED: AMOCLA875 PO (13:37)
[2024-06-04] MEDS ORDERED: PRED20 PO (13:37)
[2024-06-04 13:59] VITALS: BP 129/84
== END 2024-06-04 13:55 | disposition home or self-care (01) ==
LOC: ER 10:36
PROVIDERS: Emergency Medicine
DX: J44.1 Chronic obstructive pulmonary disease with (acute) exacerbation (principal); J18.9 Pneumonia, unspecified organism; I10 Essential (primary) hypertension; E78.5 Hyperlipidemia, unspecified; I25.2 Old myocardial infarction; E03.9 Hypothyroidism, unspecified; I48.91 Unspecified atrial fibrillation; Z86.73 Personal history of transient ischemic attack (TIA), and cerebral infarction without residual deficits; Z79.899 Other long term (current) drug therapy; Z88.5 Allergy status to narcotic agent
CPT/HCPCS: 0241U; 71046; 80053; 84484; 85025; 93005; 93010; 94644; 94664; 96374; 99285-25; J2919

== ENCOUNTER → 2024-11-10 | Outpatient (CLI) | payer MEDICARE ==
[~2024-11-10] MED LIST changes: +AMOCLA875 PO; +PRED20 PO
[2024-11-10 15:30] LABS: BASOPHILS ABSOLUTE AUTO 0.02 K/mm3 (0.00-0.23); BASOPHILS PERCENT AUTO 0 % (0-2); EOSINOPHILS ABSOLUTE AUTO 0.02 K/mm3 (0.00-0.68); EOSINOPHILS PERCENT AUTO 0 % (0-6); Hematocrit 31.7 % (37.0-53.0); Hemoglobin 9.7 g/dL (13.5-17.5); IMMATURE GRAN ABSOLUTE AUTO 0.12 K/mm3 (0.00-0.10); IMMATURE GRAN PERCENT AUTO 1 % (0-1); LYMPHOCYTES ABSOLUTE AUTO 1.46 K/mm3 (0.84-5.20); LYMPHOCYTES PERCENT AUTO 17 % (21-46); MONOCYTES ABSOLUTE AUTO 1.99 K/mm3 (0.16-1.47); MONOCYTES PERCENT AUTO 23 % (4-13); Mean Corpuscular HGB Conc 30.6 g/dL (31.5-36.5); Mean Corpuscular Volume 94 fL (80-100); NEUTROPHILS ABSOLUTE AUTO 4.99 K/mm3 (1.96-9.15); NEUTROPHILS PERCENT AUTO 58 % (41-73); NRBC ABSOLUTE 0.00 K/mm3 (0.00-0.02); NRBC Auto 0.0 /100 WBC (0.0-0.2); Platelet Count 161 K/mm3 (150-400); RDW Coefficient Variation 15.5 % (11.7-14.2); RDW Standard Deviation 53.1 fL (35.1-46.3)
[2024-11-10 16:07] LABS: Alanine Aminotransfer (ALT/SGP 23 U/L (12-78); Albumin, Blood 4.0 g/dL (3.4-5.0); Albumin/Globulin Ratio 1.5 (0.8-1.8); Anion Gap 8 mmol/L (3-11); Aspartate Aminotrans (AST/SGOT 17 U/L (12-37); Bilirubin, Total 0.6 mg/dL (0.1-1.0); Blood Urea Nitrogen 25 mg/dL (8-24); CHOL/HDL RATIO 2.1; CO2, Blood 27 mmol/L (21-32); Calcium, Blood 9.2 mg/dL (8.5-10.1); Chloride, Blood 107 mmol/L (98-108); Cholesterol 135 mg/dL (50-200); Creatinine, Blood 0.94 mg/dL (0.60-1.20); Globulin, Blood 2.7 g/dL (2.2-4.0); Glucose, Blood 97 mg/dL (70-99); HDL Cholesterol 64 mg/dL (>39); LDL/HDL RATIO 0.6; Low Density Lipoprotein Chol 39 mg/dL (0-110); Potassium, Blood 3.3 mmol/L (3.5-5.5); Sodium, Blood 139 mmol/L (136-145); Thyroid Stimulating Hormone 34.400 uIU/mL (0.360-4.800); Total Protein, Blood 6.7 g/dL (6.4-8.2); Triglycerides 158 mg/dL (30-160); Very Low Density Lipoprot Chol 31 mg/dL (6-32)
[2024-11-11 19:42] LABS: Ferritin, Serum 34.0 ng/mL (26-388); Total Iron Binding Capacity 393.0 ug/dL (250-450)
== END | disposition home or self-care (01) ==
LOC: LAB SHORT 13:15 → LAB 13:15
PROVIDERS: Internal Medicine
DX: E03.9 Hypothyroidism, unspecified (principal); E55.9 Vitamin D deficiency, unspecified; E78.2 Mixed hyperlipidemia; I10 Essential (primary) hypertension; I25.10 Atherosclerotic heart disease of native coronary artery without angina pectoris; E61.1 Iron deficiency
CPT/HCPCS: 80053; 80061; 82306; 82728; 83540; 83550; 84443; 85025